=== PATIENT | female | born 1980 | race African-American/Black ===

== ENCOUNTER 2020-09-09 08:31 | Outpatient (CLI) | payer BC | END 2020-09-09 08:32 | disposition home or self-care (01) | LOC: NM 08:31 | PROVIDERS: ATTEND Internal Medicine Endocrinology, Diabetes & Metabolism | DX: E05.90 Thyrotoxicosis, unspecified without thyrotoxic crisis or storm (principal) | CPT/HCPCS: 78014; A9516 ==

== ENCOUNTER 2020-11-21 08:04 | Outpatient (CLI) | payer BC | END 2020-11-21 08:05 | disposition home or self-care (01) | LOC: NM 08:04 | PROVIDERS: ATTEND Internal Medicine Endocrinology, Diabetes & Metabolism | DX: E05.00 Thyrotoxicosis with diffuse goiter without thyrotoxic crisis or storm (principal) | CPT/HCPCS: 78014; A9516 ==

== ENCOUNTER 2021-05-16 15:21 | Outpatient (CLI) | payer BC ==
[2021-05-17 12:54] LABS: SARS-CoV-2 PCR by NAA Not Detected (NotDetected)
== END 2021-05-16 15:22 | disposition home or self-care (01) ==
LOC: LABBT 15:21
PROVIDERS: ATTEND Otolaryngology Plastic Surgery within the Head & Neck
DX: Z01.812 Encounter for preprocedural laboratory examination (principal); E07.9 Disorder of thyroid, unspecified; E05.00 Thyrotoxicosis with diffuse goiter without thyrotoxic crisis or storm; R53.82 Chronic fatigue, unspecified; R06.00 Dyspnea, unspecified; R63.4 Abnormal weight loss; Z20.822 Contact with and (suspected) exposure to COVID-19
CPT/HCPCS: 85014; U0003; U0005

== ENCOUNTER 2021-06-13 15:23 | Outpatient (CLI) | payer BC ==
[2021-06-13 23:19] LABS: SARS-CoV-2 PCR by NAA Not Detected (NotDetected)
== END 2021-06-13 15:24 | disposition home or self-care (01) ==
LOC: LABBT 15:23
PROVIDERS: ATTEND Otolaryngology Plastic Surgery within the Head & Neck
DX: Z01.812 Encounter for preprocedural laboratory examination (principal); E05.00 Thyrotoxicosis with diffuse goiter without thyrotoxic crisis or storm; J34.2 Deviated nasal septum; E07.9 Disorder of thyroid, unspecified; R53.82 Chronic fatigue, unspecified; R06.00 Dyspnea, unspecified; R63.4 Abnormal weight loss; Z20.822 Contact with and (suspected) exposure to COVID-19
CPT/HCPCS: 85014; 93005; 93010; U0003; U0005

== ENCOUNTER 2021-06-18 08:19 | Inpatient (IN) | payer BC ==
[2021-05-16 10:48] VITALS: BMI 21.6
[2021-06-18] MEDS ORDERED: Midazolam HCl 2 mg/2 ml Vial ONE ×2 (09:27→10:24)
[2021-06-18] MEDS ORDERED: Xylocaine 1% w/ Epi 1:100K 10 ML VIAL ONE (10:16)
[2021-06-18] MEDS ORDERED: Fentanyl 250 MCG/5 ML VIAL ONE ×2 (10:24→13:18)
[2021-06-18] MEDS ORDERED: PROPOFOL 200 MG/20 ML VIAL ONE (10:51)
[2021-06-18] MEDS ORDERED: Succinylcholine 200 MG/10 ml SYRINGE FS ONE (10:51)
[2021-06-18] MEDS ORDERED: Ondansetron PF 4 MG/2 ML Vial ONE (10:51)
[2021-06-18] MEDS ORDERED: Lidocaine 1% PF 5 ML VIAL ONE (10:51)
[2021-06-18] MEDS ORDERED: Dexamethasone 20 MG/5 ML VIAL ONE (10:51)
[2021-06-18] MEDS ORDERED: Promethazine HCl 25 MG/ML VIAL IVPB PRN (12:40)
[2021-06-18] MEDS ORDERED: Promethazine HCl 25 MG/ML VIAL IM PRN (12:40)
[2021-06-18] MEDS ORDERED: Ondansetron HCl/PF 4 MG/2 ML Vial IVP PRN (12:40)
[2021-06-18] MEDS ORDERED: Bacitracin 1 PK TOP PRN (13:42)
[2021-06-18] MEDS ORDERED: Hydrocodone-Acetamin 15 ML UDCUP PO PRN (13:45)
[2021-06-18] MEDS ORDERED: Ondansetron PF 4 MG/2 ML Vial IVP PRN (13:46)
[2021-06-18] MEDS ORDERED: HYDROmorphone 0.5 MG/0.5 ML SYRINGE ONE (13:58)
[2021-06-18] MEDS ORDERED: CEFAZOLIN 1 GM in Sodium Chloride 0.9% 100 ML IVPB SCH (14:00)
[2021-06-18] MEDS ORDERED: Albuterol Sulfate 1.25 MG/3 ML NEB NEB PRN (15:52)
[2021-06-18] MEDS: Hydrocodone-Acetamin 15 ML UDCUP PO PRN (17:02)
[2021-06-18] MEDS: Sodium Chloride 0.45% 1,000 ML IV SCH (17:03)
[2021-06-18] MEDS: ceFAZolin 1 GM/D5W 1 GM in Premix Bag 1 BAG IVPB SCH (18:10)
[2021-06-18] MEDS: Methimazole 10 MG TAB PO SCH (21:30)
[2021-06-19] MEDS: Hydrocodone-Acetamin 15 ML UDCUP PO PRN ×4 (00:28→21:12)
[2021-06-19] MEDS: Sodium Chloride 0.45% 1,000 ML IV SCH ×3 (03:46→18:13)
[2021-06-19] MEDS: ceFAZolin 1 GM/D5W 1 GM in Premix Bag 1 BAG IVPB SCH ×3 (03:47→18:11)
[2021-06-19] MEDS ORDERED: Methimazole 10 MG TAB PO SCH (09:00)
[2021-06-19] MEDS: Atenolol 25 MG TAB PO SCH (09:25)
[2021-06-19] MEDS: Methimazole 10 MG TAB PO SCH ×3 (09:26→20:59)
[2021-06-19] MEDS: Venlafaxine HCl XR 75 MG CAP PO SCH ×2 (09:26→09:36)
[2021-06-20] MEDS: ceFAZolin 1 GM/D5W 1 GM in Premix Bag 1 BAG IVPB SCH ×2 (03:42→11:20)
[2021-06-20] MEDS: Hydrocodone-Acetamin 15 ML UDCUP PO PRN ×2 (05:24→11:58)
[2021-06-20] MEDS: Sodium Chloride 0.45% 1,000 ML IV SCH ×2 (07:19→13:38)
[2021-06-20] MEDS: Atenolol 25 MG TAB PO SCH (08:44)
[2021-06-20] MEDS: Venlafaxine HCl XR 75 MG CAP PO SCH (08:48)
[2021-06-20] MEDS: Methimazole 10 MG TAB PO SCH ×2 (09:53→15:53)
[2021-06-20 12:12] LABS: Hemoglobin 8.4 g/dL (12.0-16.0); Mean Corpuscular Volume 83.8 fL (78.0-98.0); Mean Platelet Volume 7.1 fL (7.4-10.4); Platelet Count 292 thou/uL (130-400); RBC Distribution Width 13.6 % (11.5-14.5); Red Blood Cell (RBC) Count 3.23 mill/uL (4.20-5.40); White Blood Cell (WBC) Count 7.3 thou/uL (4.8-10.8)
[2021-06-20 12:37] LABS: Band 1 % (5-11); Eosinophils 1 % (0-10); Hypochromia SLIGHT = 6-15 cells (100X) (0-5/hpf); Lymphocytes 31 % (21-51); MDiff Complete? YES; Monocytes 2 % (0-10); Neutrophil 65 % (42-75); Ovalocytes SLIGHT = 2-5 cells (100X) (0-1/hpf); Platelet Morphology Comment Appears Adequate; Polychromasia SLIGHT = 2-3 cells (100X) (0-2/hpf)
[2021-06-20 12:43] LABS: ALT (SGPT) 18 U/L (8-55); AST (SGOT) 26 U/L (5-34); Albumin 3.8 g/dL (3.5-5.0); Anion Gap 16 mmol/L (10-20); BUN (Urea Nitrogen) 4 mg/dL (7.0-18.7); Bilirubin, Total 0.8 mg/dL (0.2-1.2); Calc. Creatinine Clearance 87 mL/min (70-130); Calcium 8.2 mg/dL (7.8-10.44); Carbon Dioxide 20 mmol/L (22-29); Chloride 105 mmol/L (98-107); Globulin 3.3 g/dL (2.4-3.5); Glucose 96 mg/dL (70-105); Potassium 3.5 mmol/L (3.5-5.1); Protein, Total 7.1 g/dL (6.0-8.3); Sodium 137 mmol/L (136-145)
[2021-06-20 13:39] LABS: Alkaline Phosphatase 147 U/L (40-110)
[2021-06-20 16:34] VITALS: BP 108/75; TEMP 98.2
== END 2021-06-20 16:30 | disposition home or self-care (01) | DRG 627 ==
LOC: SDC 08:19 → SURG A 13:42 → OBSVTOIN 06-20 13:31
PROVIDERS: ADMIT Otolaryngology Plastic Surgery within the Head & Neck; ATTEND Otolaryngology Plastic Surgery within the Head & Neck
PROC: 0GTK0ZZ Resection of Thyroid Gland, Open Approach (ICD-10-PCS; principal; 2021-06-18)
PROC: 4A11X4G Monitoring of Peripheral Nervous Electrical Activity, Intraoperative, External Approach (ICD-10-PCS; 2021-06-18)
DX: E05.00 Thyrotoxicosis with diffuse goiter without thyrotoxic crisis or storm (principal); E05.90 Thyrotoxicosis, unspecified without thyrotoxic crisis or storm; Z20.822 Contact with and (suspected) exposure to COVID-19; F41.9 Anxiety disorder, unspecified; Z79.51 Long term (current) use of inhaled steroids; Z79.899 Other long term (current) drug therapy
CPT/HCPCS: 36415; 80053; 82310; 83970; 85025; 88307; 96365; 96366; C1776; C1889; G0378; J0690; J1100; J1170; J2250; J2405; J2704; J3010